=== PATIENT | female | born 1940 | race Caucasian/White ===

== ENCOUNTER 2016-08-25 10:35 | Day surgery (SDC) | payer OTHER ==
[2016-08-19 12:41] LABS: HEMATOCRIT 41.8 % (36.0-48.0); HEMOGLOBIN 14.2 g/dL (12.0-16.0)
[2016-08-19 12:54] LABS: BUN (BLOOD UREA NITROGEN) 15 MG/DL (6-23); CALCIUM, SERUM 9.8 MG/DL (8.5-10.4); CHLORIDE, SERUM 102 MMOL/L (96-112); CO2 (CARBON DIOXIDE) 28 MMOL/L (24-34); CREATININE 1.02 MG/DL (0.55-1.02); GFR AFRICAN AMERICAN 63 ML/MIN (>=60); GFR NON AFRICAN AMERICAN 54 ML/MIN (>=60); GLUCOSE, SERUM 170 MG/DL (60-99); POTASSIUM, SERUM 4.5 MMOL/L (3.5-5.3); SODIUM, SERUM 139 MMOL/L (135-148)
--- NOTE | ~2016-08-25 | OP ---
Record Of Operation [facility] [address] [place] [address] NAME: DAVID WORKMAN : 44 STATUS : REG [facility] [place] PAT#: [id number] AGE: 76 ADM/REG DATE : 08/25/16 MR#: [id number] REPORT SERV DATE: 08/25/16 DICTATED BY: DEZ STOCK DATE: 08/25/16 REPORT STATUS : Draft TRANSCRIBED BY: MODL DATE: 08/25/16 DATE OF PROCEDURE: 08/25/2016 PREOPERATIVE DIAGNOSIS: Drainage from umbilicus. POSTOPERATIVE DIAGNOSES: Cyst of umbilicus and umbilical hernia. OPERATIONS: Excision of umbilicus and cyst of umbilicus and umbilical hernia repair. SUMMARY: After adequate general anesthesia, prep and drape, incision was made longitudinally around the umbilicus, carried down through the skin and subcutaneous tissue down to the fascia. The umbilicus was dissected free from the surrounding tissue, and from the fascia. The patient was noted to have approximately a 2 cm umbilical hernia present. No track was noted from the umbilicus to the abdominal cavity. The umbilicus was noted to be excoriated, and this was excised, and sent to the Pathology, noted to have a 3 mm cyst at the base of the umbilicus. After adequate irrigation, good hemostasis was obtained. The fascia was closed with interrupted 0 Nurolon suture in interrupted fashion, and the skin edges around the umbilicus which had been excised were tacked down to the anterior fascia with interrupted 3-0 Vicryl suture. After adequate irrigation, the skin was closed with interrupted 3-0 Vicryl suture in routine fashion, and a pressure dressing was applied. The patient tolerated the procedure well, and was discharged to the recovery room in satisfactory condition. YULIET/KAREN Dez Stock M.D. / [id number] CC: Norbert Martinez M.D.
[~2016-08-25 10:35] MED LIST: AMARYL4 PO; AVAPRO300 MG PO; DITROPAN XL10 MG PO; FORTAMET500 MG PO; LUMIGAN2.5 ML OPH; MULTIPLE VIT PO; VALTREX5 PO
== END 2016-08-25 17:49 | disposition home or self-care (01) ==
LOC: SDC 10:35
PROVIDERS: Specialist
PROC: 0WBF0ZZ Excision of Abdominal Wall, Open Approach (ICD-10-PCS; 2016-08-25)
PROC: 0WQF0ZZ Repair Abdominal Wall, Open Approach (ICD-10-PCS; principal; 2016-08-25 12:15)
DX: L08.82 Omphalitis not of newborn (principal); K42.9 Umbilical hernia without obstruction or gangrene; I10 Essential (primary) hypertension; E11.9 Type 2 diabetes mellitus without complications; H40.9 Unspecified glaucoma; H26.9 Unspecified cataract; M19.90 Unspecified osteoarthritis, unspecified site; E66.01 Morbid (severe) obesity due to excess calories; Z68.30 Body mass index [BMI] 30.0-30.9, adult; Z90.710 Acquired absence of both cervix and uterus; Z88.2 Allergy status to sulfonamides; Z88.5 Allergy status to narcotic agent; Z90.49 Acquired absence of other specified parts of digestive tract; Z79.84 Long term (current) use of oral hypoglycemic drugs; Z79.899 Other long term (current) drug therapy; Z98.890 Other specified postprocedural states
CPT/HCPCS: 80048; 82962; 85014; 85018; 87641; 88305; 88331; 88341; 88342; 93005; A9270-GY; J0690; J2405; J2710; J3010